=== PATIENT | female | born 1995 | race Caucasian/White ===

== ENCOUNTER 2018-11-15 22:49 | Emergency (ER) | payer SELFPAY ==
[2018-11-15 23:40] VITALS: BMI 20.3
[2018-11-16 00:19] VITALS: BP 102/58; PULSE 82; RESP 18; TEMP 98.1; O2SAT 100
[2018-11-16 00:56] LABS: PH,URINE 7.5 (4.7-8.0); URINE BILIRUBIN NEGATIVE (NEGATIVE); URINE BLOOD NEGATIVE (NEGATIVE); URINE GLUCOSE (UA) NEGATIVE (NEGATIVE); URINE LEUKOCYTE ESTERASE NEGATIVE Leu/uL (NEGATIVE); URINE PROTEIN NEGATIVE mg/dL (<30 mg/dL)
[2018-11-16 00:59] LABS: URINE APPEARANCE CLEAR (CLEAR); URINE COLOR YELLOW (YELLOW)
--- NOTE | 2018-11-16 01:17 | ED PDOC ---
Arrival/HPI - General Chief Complaint: Female Genitourinary Time Seen by Provider: 11/15/18 22:59 Historian: Patient - History of Present Illness Narrative History of Present Illness (Text): 23 y/o female with no significant PMH presents to the ED for test. Pt states she needs proof of for her medicaid application. Pt did not take a home test. States her last menstruation was 2 months ago, in the middle of August. Admits to recently experiencing increasing nausea and heartburn. This would be her first . Denies abdominal pain, vaginal bleeding, fever, chills, vomiting, urinary symptoms, vaginal discharge, back pain, SOB, chest pain, diarrhea, or any other associated symptoms. Past Medical History - Provider Review Nursing Documentation Reviewed: Yes - Psychiatric Hx Substance Use: No Family/Social History - Physician Review Nursing Documentation Reviewed: Yes Family/Social History: No Known Family HX Smoking Status: Never Smoked Hx Alcohol Use: No Hx Substance Use: No Allergies/Home Meds Allergies/Adverse Reactions: Allergies No Known Allergies Allergy (Verified 11/15/18 23:44) Review of Systems - Review of Systems Constitutional: Normal. absent: Fevers Eyes: Normal. absent: Vision Changes ENT: Normal. absent: Sore Throat, Sinus Congestion Respiratory: Normal. absent: SOB, Cough Cardiovascular: Normal. absent: Chest Pain, Palpitations, Syncope Gastrointestinal: Nausea. absent: Abdominal Pain, Diarrhea, Vomiting Genitourinary Female: Normal. absent: Dysuria, Frequency Musculoskeletal: Normal. absent: Arthralgias, Back Pain, Neck Pain Skin: Normal. absent: Rash Neurological: Normal. absent: Headache, Dizziness Physical Exam Vital Signs Reviewed: Yes Vital Signs Temp Pulse Resp BP Pulse Ox 11/16/18 00:18 98.1 F 82 18 102/58 L 100 Temperature: Afebrile Blood Pressure: Hypotensive Pulse: Regular Respiratory Rate: Normal Appearance: Positive for: Well-Appearing, Non-Toxic, Comfortable Pain Distress: None Mental Status: Positive for: Alert and Oriented X 3 - Systems Exam Head: Present: Atraumatic, Normocephalic Pupils: Present: PERRL Extroacular Muscles: Present: EOMI Conjunctiva: Present: Normal Mouth: Present: Moist Mucous Membranes Neck: Present: Normal Range of Motion Respiratory/Chest: Present: Clear to Auscultation, Good Air Exchange. No: Respiratory Distress, Accessory Muscle Use Cardiovascular: Present: Regular Rate and Rhythm, Normal S1, S2, Peripheal Pulses Present Abdomen: Present: Normal Bowel Sounds. No: Tenderness, Distention, Peritoneal Signs Back: Present: Normal Inspection Upper Extremity: Present: Normal Inspection, Normal ROM Lower Extremity: Present: Normal ROM Neurological: Present: GCS=15, Speech Normal, Motor Func Grossly Intact, Normal Sensory Function, Gait Normal Skin: Present: Warm, Dry, Normal Color. No: Rashes Psychiatric: Present: Alert, Oriented x 3, Normal Insight, Normal Concentration, Normal Affect, Normal Mood Medical Decision Making ED Course and Treatment: Initial Plan: * POC urine * UA POC test positive. UA unremarkable, no bacteria or UTI. Pt updated with results and provided with copy. Denies abdominal pain or vaginal bleeding. Advised OBGYN followup and vitamin use. Prescription provided. Diagnostic testing results and plan of care discussed with patient. Strict instructions given regarding prescription use, importance of followup, and signs/symptoms to return to ER including abdominal pain, fever, chills, back pain, or any other new/worsening symptoms. Pt verbalized understanding of discussion. Patient is A&Ox3, ambulating with steady gait, with vital signs stable for discharge. - Lab Interpretations Lab Results: Urine Color Yellow (YELLOW) 11/16/18 00:14 Urine Appearance Clear (CLEAR) 11/16/18 00:14 Urine pH 7.5 (4.7-8.0) 11/16/18 00:14 Ur Specific [place] 1.015 (1.005-1.035) 11/16/18 00:14 Urine Protein Negative mg/dL (<30 mg/dL) 11/16/18 00:14 Urine Glucose (UA) Negative mg/dL (NEGATIVE) 11/16/18 00:14 Urine Ketones Negative mg/dL (NEGATIVE) 11/16/18 00:14 Urine Blood Negative (NEGATIVE) 11/16/18 00:14 Urine Nitrate Negative (NEGATIVE) 11/16/18 00:14 Urine Bilirubin Negative (NEGATIVE) 11/16/18 00:14 Urine Urobilinogen 1.0 E.U./dL (<1 E.U./dL) H 11/16/18 00:14 Ur Leukocyte Esterase Negative Agustina/uL (NEGATIVE) 11/16/18 00:14 Disposition/Present on Arrival - Present on Arrival Any Indicators Present on Arrival: No History of DVT/PE: No History of Uncontrolled Diabetes: No Urinary Catheter: No History of Decub. Ulcer: No History Surgical Site Infection Following: None - Disposition Have Diagnosis and Disposition been Completed?: Yes Diagnosis: Disposition: HOME/ ROUTINE Disposition Time: 01:10 Patient Problems: Current Active Problems Problem Status Onset Acute Condition: STABLE Discharge Instructions (ExitCare): Acid Reflux (Gastroesophageal Reflux Disease) During , Care, - The Second Month Additional Instructions: vitamins daily Followup with OBGYN within 2 days Followup with primary doctor within 2 days Return to ER with any new/worsening symptoms Prescriptions: 123/Iron/Folic/Omeg3s [One-A-Day 1 Dha Sfgl] 1 each PO DAILY #30 capsule Referrals: Marcelina Romero MD [Staff Provider] - [facility] - Follow up with primary Tasha Gleason MD [Medical Doctor] - Follow up with primary Forms: [facility] (Ukrainian), WORK NOTE
== END 2018-11-16 01:40 | disposition home or self-care (01) ==
LOC: EDBD → ED 22:49
DX: O26.899 Other specified pregnancy related conditions, unspecified trimester (principal); Z3A.00 Weeks of gestation of pregnancy not specified